=== PATIENT | male | born 1965 | race African-American/Black ===

== ENCOUNTER 2020-06-19 11:37 | Emergency (ER) | payer OTHER ==
[~2020-06-19 11:37] MED LIST: NORVASC10 MG PO; PERCOCET 5-3251 EACH PO; ZOCOR20 MG PO
[2020-06-19 12:51] LABS: BASOPHIL 0.6 % (0-2); EOSINOPHIL 2.1 % (0-5); HCT 45.2 % (42.0-52.0); HGB 15.3 g/dl (13.2-18.0); LYMPHOCYTE 26.5 % (15-48); MCH 27.9 pg (25.0-31.0); MCHC 33.8 g/dL (32.0-36.0); MCV 82.3 fL (78.0-100.0); MONOCYTE 10.2 % (0-12); NEUTROPHIL 60.4 % (41-80); NRBC 0; PLT 218 K/uL (150-400); RBC 5.49 M/uL (4.70-6.00); RDW 14.6 % (11.5-14.0); WBC 5.3 K/uL (4.0-10.5)
[2020-06-19 12:56] LABS: INR 1.02 (0.9-1.2); PROTHROMBIN TIME 12.7 SECONDS (11.4-13.6); PTT 25.8 SECONDS (22.2-34.7)
[2020-06-19 13:01] LABS: ALBUMIN 3.6 g/dL (3.4-5.0); BILIRUBIN - TOTAL 1.1 mg/dL (0.2-1.0); BUN/CREAT RATIO (CALC) 12.7 RATIO; CREATININE 1.18 mg/dL (0.67-1.17); GLOBULIN (CALCULATION) 4.6 g/dL; MAGNESIUM 2.1 mg/dL (1.8-2.4); POTASSIUM 3.9 mmol/L (3.5-5.1); TOTAL PROTEIN 8.2 g/dL (6.4-8.2)
[2020-06-19] MEDS ORDERED: VALTREX1000 MG PO (15:01)
[2020-06-19] MEDS ORDERED: PREDNISONE 20MG20 MG PO (15:01)
[2020-06-19] MEDS ORDERED: ARTIFICIAL TEAR15 M2 OU (15:01)
[2020-07-29] MEDS ORDERED: COZAAR50 MG PO (10:53)
[2020-07-29] MEDS ORDERED: ONE-A-DAY MEN'1 EAC3 PO (10:55)
[2020-07-29] MEDS ORDERED: TURMERIC PO (10:57)
== END 2020-06-19 15:12 | disposition home or self-care (01) ==
LOC: FER 11:37
PROVIDERS: Emergency Medicine
DX: G51.0 Bell's palsy (principal); I10 Essential (primary) hypertension; Z79.899 Other long term (current) drug therapy
CPT/HCPCS: 36415; 70450; 80053; 83735; 84484; 85025; 85610; 85730; 93005; J3490

== ENCOUNTER → 2020-08-05 | Day surgery (SDC) | payer OTHER ==
[~2020-08-05] MED LIST changes: +ARTIFICIAL TEAR15 M2 OU; +COZAAR50 MG PO; +ONE-A-DAY MEN'1 EAC3 PO; +PREDNISONE 20MG20 MG PO; +TURMERIC PO; +VALTREX1000 MG PO
[2020-08-05 07:53] LABS: HCT 47.4 % (42.0-52.0); HGB 16.2 g/dl (13.2-18.0); MCHC 34.2 g/dL (32.0-36.0); MCV 81.9 fL (78.0-100.0); RBC 5.79 M/uL (4.70-6.00); RDW 14.3 % (11.5-14.0); WBC 5.3 K/uL (4.0-10.5)
[2020-08-05 08:31] LABS: ALBUMIN 4.1 g/dL (3.4-5.0); BILIRUBIN - TOTAL 1.1 mg/dL (0.2-1.0); BUN/CREAT RATIO (CALC) 17.5 RATIO; CREATININE 1.03 mg/dL (0.67-1.17); GLOBULIN (CALCULATION) 3.9 g/dL; POTASSIUM 3.4 mmol/L (3.5-5.1)
== END | disposition home or self-care (01) ==
LOC: FAS 07:14
PROVIDERS: Surgery
DX: Z12.11 Encounter for screening for malignant neoplasm of colon (principal); I10 Essential (primary) hypertension; G47.30 Sleep apnea, unspecified; Z79.899 Other long term (current) drug therapy
CPT/HCPCS: 36415; 80053; J2704; J7120